=== PATIENT | male | born 1960 | race Caucasian/White ===

== ENCOUNTER 2018-01-09 19:20 | Emergency (ER) | payer MEDICAID, OTHER ==
[~2018-01-09] VITALS: Ht 185.4 cm; Wt 90.7 kg
--- NOTE | 2018-01-09 19:28 | NUR ---
TO ROOM WITH C/O RIGHT LOWER EXTREMITY LACERATION WITH PROFUSE BLEEDING. PATIENT DENIES BLOOD THINNERS, SMALL LAC NOTED WITH ACTIVE BLEEDING, GUAZE AND PRESSURE APPLIED, EXAMINE BY DR COLLADO, WAITING FOR SUTURES.
[2018-01-09] MEDS ORDERED: TDAP DIPH,PERTUSS,TET VAC/PF 0.5 ML DISP.SYRIN IM ONE ×2 (19:30→19:47)
[2018-01-09] MEDS ORDERED: ATEN25TA (19:30)
[2018-01-09] MEDS ORDERED: LIDOCAINE 1%-EPI 1:100,000 20 ML VIAL TP ONE (19:30)
[2018-01-09] MEDS ORDERED: NEOMY/BACITRA/POLYMYXIN B OINT UD PACKET TP ONE (19:42)
--- NOTE | 2018-01-09 19:45 | NUR ---
WOUND SUTURED BY EMIL TORRES AND DRESSING APPLIED.
--- NOTE | 2018-01-09 19:55 | NUR ---
TETANUS VACCINE GIVEN, CONSENT OBTAIN.
[2018-01-09 20:22] VITALS: BP 154/92
== END 2018-01-09 20:00 | disposition home or self-care (01) ==
LOC: ER 19:23
DX: S81.811A Laceration without foreign body, right lower leg, initial encounter (principal); Z28.9 Immunization not carried out for unspecified reason; I10 Essential (primary) hypertension; F17.200 Nicotine dependence, unspecified, uncomplicated; W26.8XXA Contact with other sharp object(s), not elsewhere classified, initial encounter; Y93.89 Activity, other specified; Y92.89 Other specified places as the place of occurrence of the external cause; Y99.8 Other external cause status
CPT/HCPCS: 12001; 90471; 90715; 99283; J3490; A4217; A4663